=== PATIENT | male | born 1940 | race Caucasian/White ===

== ENCOUNTER 2020-04-20 10:09 | Observation (INO) | payer MEDICARE, BC, OTHER ==
[2020-04-20] MEDS ORDERED: Metoclopramide HCl 10 MG/2 ML VIAL ONE (11:19)
[2020-04-20 11:27] LABS: #Lymphocytes 1.3 thou/uL (1.20-3.40); #Monocytes 0.3 thou/uL (0.11-0.59); #Neutrophils 10.1 thou/uL (1.40-6.50); %Basophils 0.1 % (0.0-1.0); %Eosinophils 0.3 % (0.0-10.0); %Lymphocytes 11.1 % (21.0-51.0); %Monocytes 2.1 % (0.0-10.0); %Neutrophils 86.4 % (42.0-75.0); Hemoglobin 15.4 g/dL (14.0-18.0); Mean Corpuscular HGB CONC 32.5 g/dL (32.0-36.0); Mean Corpuscular Hemoglobin 29.9 pg (27.0-31.0); Mean Corpuscular Volume 91.8 fL (78.0-98.0); Mean Platelet Volume 7.5 fL (7.4-10.4); Platelet Count 307 thou/uL (130-400); RBC Distribution Width 11.9 % (11.5-14.5); Red Blood Cell (RBC) Count 5.17 mill/uL (4.70-6.10); White Blood Cell (WBC) Count 11.7 thou/uL (4.8-10.8)
[2020-04-20 11:30] LABS: PTT 29.2 sec (22.9-36.1); Prothrombin Time 13.2 sec (12.0-14.7)
[2020-04-20 11:52] LABS: ALT (SGPT) 19 U/L (8-55); AST (SGOT) 16 U/L (5-34); Albumin 4.1 g/dL (3.4-4.8); Alkaline Phosphatase 61 U/L (40-110); Anion Gap 16 mmol/L (10-20); BUN (Urea Nitrogen) 17 mg/dL (8.4-25.7); Bilirubin, Total 0.6 mg/dL (0.2-1.2); Calc. Creatinine Clearance 0 mL/min (70-130); Calcium 9.4 mg/dL (7.8-10.44); Carbon Dioxide 25 mmol/L (23-31); Chloride 101 mmol/L (98-107); Estimated GFR-MDRD 72; Globulin 3.4 g/dL (2.4-3.5); Glucose 159 mg/dL (83-110); Potassium 3.8 mmol/L (3.5-5.1); Protein, Total 7.5 g/dL (5.8-8.1); Sodium 138 mmol/L (136-145)
[2020-04-20 12:10] LABS: CKMB 2.2 ng/mL (0-6.6)
[2020-04-20] MEDS ORDERED: Famotidine/PF 20 mg/2ml Vial ONE (12:26)
[2020-04-20] MEDS ORDERED: methylPREDNISolone Sod Succ/PF 125 MG/2 ML VIAL ONE (12:26)
[2020-04-20] MEDS ORDERED: diphenhydrAMINE 50 MG/ML VIAL ONE (12:26)
[2020-04-20] MEDS ORDERED: Labetalol HCl 100 MG/20 ML VIAL ONE (12:39)
--- NOTE | 2020-04-20 13:08 | CT ---
CT Brain WO Con: 04/20/2020 10:57 AM CLINICAL HISTORY: Headache. IMAGING TECHNIQUE: Multiple CT images were obtained of the brain without IV contrast. COMPARISON: MR the brain dated 08/19/2016 FINDINGS: BRAIN: Evidence of acute infarct: None. Evidence of chronic ischemic change:There is mild chronic small vessel white matter ischemic change, likely stable to the prior MR examination. Evidence of intracranial hemorrhage: None. Evidence of midline shift: Third ventricle and septum pellucidum are midline. Ventricles: Normal. No hydrocephalus. SKULL: Intact. VISUALIZED PARANASAL SINUSES: Clear. MASTOID AIR CELLS: Clear. EXTRACRANIAL SOFT TISSUES: Normal. IMPRESSION: No acute intracranial abnormality.
--- NOTE | 2020-04-20 13:25 | CT ---
EXAM: CT ANGIOGRAM OF THE HEAD AND NECK INDICATION: Headache. Hypertension. Evaluate for dissection versus ruptured aneurysm. COMPARISON: None. TECHNIQUE: CT angiogram of the head and neck are performed in the axial plane. Three-dimensional reformatted dany ges are submitted for interpretation. FINDINGS: CTA OF THE HEAD WITH AND WITHOUT CONTRAST: POSTCONTRAST CT OF BRAIN: Pathologic enhancement: No pathologic enhancement the brain. Postcontrast soft tissue neck CT: Aerodigestive tract:Aerodigestive tract is patent. No mucosal abnormality. Sinuses: Adequate aeration. Orbits: Bilateral ocular lenses are appropriately located. Both globes are intact. Retrobulbar fat is preserved. Symmetric attenuation the optic nerves and ocular rectus muscles. Salivary glands:Symmetric attenuation of the parotid and submandibular glands . Thyroid gland: Diminutive. Lymph nodes: No evidence of lymphadenopathy by size criteria. Paraspinal muscles: Symmetric attenuation of the sternocleidomastoid muscles. Appropriate attenuation of the paraspinal muscles. Cervical spine:Vertebral body height is maintained. No fracture. There is loss of disc space height w ith mild osteophyte formation. There are varying degrees of central canal stenosis and foraminal narrowing on the basis of degenerative change. Limited evaluation by technique. Upper mediastinum and lung apices: No acute abnormality. CTA OF THE NECK WITH CONTRAST: Aorta: Appropriate enhancement and luminal diameter the visualized aortic arch. Common origin of the innominate artery and left carotid artery. Right carotid artery: Appropriate enhancement and luminal diameter of the innominate artery, common c arotid artery, carotid bifurcation and internal carotid artery. Minimal atherosclerosis. No significant stenosis based upon NASCET criteria. Left carotid: Appropriate enhancement and luminal diameter of the common carotid artery, carotid bifu rcation and internal carotid artery. This calcified plaque in the left carotid bifurcation and proximal internal carotid artery. Short segment mild narrowing of the proximal internal carotid arter y. No evidence of high-grade stenosis based upon NASCET criteria. Subclavian arteries:Symmetric and patent . Vertebral arteries:Patent throughout their course in the neck. Codominant vertebral arteries. CTA OF THE BRAIN: Intracranial internal carotid arteries:Appropriate enhancement and luminal diameter. Atherosclerosis in both cavernous carotid segments. Anterior circulation: Appropriate enhancement and luminal diameter of the A1 segments, A2 segments, M 1 segments and proximal MCA branches. No significant occlusion in the anterior circulation. No evidence of aneurysm. Intracranial vertebral arteries: Symmetric visualized left and right PICA artery origins are normal i n appearance. There is atherosclerosis with at least moderate narrowing involving the intracranial bilateral vertebral arteries. Posterior circulation: Both vertebral arteries supply a normal caliber basilar artery. Patent bilater al P1 segments. The majority the posterior cerebral circulation appears to be via prominent posterior communicating arteries. IMPRESSION: 1. No hemodynamically significant stenosis, occlusion or aneurysmal formation with regard to the cerv ical carotid arteries. 2. No significant stenosis or aneurysm at the level of the [place]. 3. Findings conveyed to Dr. Moraes 04/20/2020 at 1:24 PM. Code CR. Transcribed Date/Time: 04/20/2020 1:32 PM
[2020-04-20] MEDS ORDERED: Aspirin Chewable 81 MG TAB ONE (13:49)
[2020-04-20] MEDS ORDERED: Iopamidol-370 76% 500 ML 1 ML ONE (15:27)
--- NOTE | 2020-04-20 15:30 | MRI ---
Exam: Brain MRI without contrast HISTORY: Headache, intermittent x2 weeks. Hypertension. Evaluate for stroke. Vertigo. COMPARISON: None FINDINGS: Calvarial marrow signal intensity: Appropriate T1 signal Gradient echo sequence: No hemorrhage Brain parenchyma: No mass, mass effect or midline shift. Brain volume, age-appropriate. Cortical henry-white matter differentiation: Preserved Restricted diffusion: Central arterial flow voids are maintained. Absent restricted diffusion White matter signal intensities: T2, FLAIR white matter hyperintensities due to chronic small vessel ischemic changes Sinuses: Adequate aeration of the paranasal sinuses and mastoid air cells. IMPRESSION: Absent restricted diffusion. No acute infarction.
[2020-04-20] MEDS ORDERED: Labetalol HCl 100 MG/20 ML VIAL SLOW IVP PRN (16:17)
[2020-04-20] MEDS ORDERED: HumaLOG 300 UNITS/3 ML VIAL SC PRN (16:19)
[2020-04-20] MEDS ORDERED: Dextrose 50% Abboject 50 ML SYRINGE SLOW IVP PRN (16:19)
[2020-04-20] MEDS ORDERED: Acetaminophen 325 MG TAB PO PRN (16:19)
[2020-04-20] MEDS ORDERED: Dextrose 5% in Water 1,000 ML IV PRN (16:19)
--- NOTE | 2020-04-20 16:29 | PDOC.HHP ---
Hospitalist HPI - History of Present Illness VELASQUEZ, dizziness History of Present Illness: PCP: Dr. Freire in [facility] The patient is an extremely pleasant 80-year-old male with past medical history significant for hypertension, diabetes type 2, intermittent vertigo, and hyperlipidemia. He presents to the ER today for evaluation of intermittent headaches over the past 2 weeks, those headaches have now returned constant for the past 3 days. He describes it as the worst headache of his life. He states that it is above his right eye and towards the back of his neck. The patient states that he vomited 1 time yesterday and has been nauseated today. The patient does have a history of vertigo, however, he states that lately when he has been getting up and moving around it has been more consistent. Of note, the patient in January was dizzy and went to see his PCP. It was discovered that he had low blood pressure so his physician took him off of his Norvasc and HCTZ. At the time of exam the patient's blood pressure was 148/68 and he stated that his headache was gone. He feels that his headache may be directly related to the blood pressure as his pressure was 183/96 when he first arrived. ED Course: VITAL SIGNS ThuApr 20, 2020 10:12 RAFA Norton Taylor BP: 183/96, Pulse: 78, Resp: 16, Temp: 97.8 (Oral), Pain: 5, O2 sat: 97 on (Room Air), Time: 04/20/2020 10:12. VITAL SIGNS ThuApr 20, 2020 11:11 RAFA Garcia Angela BP: 206/92, Pulse: 82, Resp: 19, O2 sat: 97, Time: 04/20/2020 11:11. VITAL SIGNS ThuApr 20, 2020 12:34 RAFA Garcia Angela BP: 196/104, Pulse: 75, Resp: 19, Pain: 5, O2 sat: 97, Time: 04/20/2020 12:34. VITAL SIGNS ThuApr 20, 2020 12:53 RAFA Garcia Angela BP: 165/86, Pulse: 71, Resp: 17, Pain: 3.5, O2 sat: 95, Time: 04/20/2020 12:53. VITAL SIGNS ThuApr 20, 2020 13:56 RAFA Lee, Darrel BP: 173/85, Pulse: 79, Resp: 18, Temp: 98.6 (Oral), Pain: 2, O2 sat: 98 on (Room Air), Time: 04/20/2020 13:56. VITAL SIGNS Fri Apr 20, 2020 15:36 RAFA Lee, Jt BP: 148/68, Pulse: 88, Resp: 20, Pain: 0, O2 sat: 96 on (Room Air), Time: 04/20/2020 15:36. Today in the ER he had lab work, brain CT without contrast, neck and brain CT with contrast, and brain MRI. He was administered aspirin 324 mg, labetalol 20 mg IV, methylprednisolone 125 mg IV, famotidine 20 mg IV, diphenhydramine 25 mg IV, and metoclopramide 10 mg IV. The steroids, Pepcid, Benadryl, and metoclopramide were given prior to his CT with contrast as he is allergic to iodine. Hospitalist ROS - Review of Systems Constitutional: reports: other (headache) Gastrointestinal: reports: nausea, vomiting (x1) All other systems reviewed; all pertinent +/- noted in HPI/Subj Hospitalist History - Past Medical History Source: patient Cardiac: reports: HTN, Hyperlipidemia SUPPLY CHAIN GENERALIST: reports: Vertigo Heme/Onc: reports: Cancer (prostate- only received radiation, cleared) Endocrine: reports: Diabetes, Hypothyroidism - Exam General Appearance: NAD, awake alert General - other findings: states he is pain free ENT: normocephalic atraumatic Neck: supple Heart: RRR, no murmur, no gallops, no rubs, normal peripheral pulses Respiratory: CTAB, no wheezes, no rales, no ronchi, normal chest expansion Gastrointestinal: soft, non-tender, non-distended, normal bowel sounds Extremities: no edema Neurological: cranial nerve grossly intact, normal sensation to touch, no weakness, no focal deficits Musculoskeletal: normal tone, normal strength Psychiatric: normal affect, normal behavior, A&O x 3 Hospitalist Results - Labs Result Diagrams: 04/20/20 11:14 04/20/20 11:14 Lab results: WBC 11.7 thou/uL (4.8-10.8) H 04/20/20 11:14 Hgb 15.4 g/dL (14.0-18.0) 04/20/20 11:14 Hct 47.5 % (42.0-52.0) 04/20/20 11:14 MCV 91.8 fL (78.0-98.0) 04/20/20 11:14 Plt Count 307 thou/uL (130-400) 04/20/20 11:14 Neutrophils % 86.4 % (42.0-75.0) H 04/20/20 11:14 Sodium 138 mmol/L (136-145) 04/20/20 11:14 Potassium 3.8 mmol/L (3.5-5.1) 04/20/20 11:14 Chloride 101 mmol/L (98-107) 04/20/20 11:14 Carbon Dioxide 25 mmol/L (23-31) 04/20/20 11:14 BUN 17 mg/dL (8.4-25.7) 04/20/20 11:14 Creatinine 1.00 mg/dL (0.7-1.3) 04/20/20 11:14 Glucose 159 mg/dL (83-110) H 04/20/20 11:14 Calcium 9.4 mg/dL (7.8-10.44) 04/20/20 11:14 Total Bilirubin 0.6 mg/dL (0.2-1.2) 04/20/20 11:14 AST 16 U/L (5-34) 04/20/20 11:14 ALT 19 U/L (8-55) 04/20/20 11:14 Alkaline Phosphatase 61 U/L (40-110) 04/20/20 11:14 CK-MB (CK-2) 2.2 ng/mL (0-6.6) 04/20/20 11:14 Troponin I 0.020 ng/mL (< 0.028) 04/20/20 14:38 Serum Total Protein 7.5 g/dL (5.8-8.1) 04/20/20 11:14 Albumin 4.1 g/dL (3.4-4.8) 04/20/20 11:14 - EKG Interpretation EKG: SR 80 bpm - Radiology Interpretation CT scan - head Status: report reviewed by me Additional Comment: Exam: CT brain WO contrast IMPRESSION: No acute intracranial abnormality. Exam: CTA Neck and Head IMPRESSION: 1. No hemodynamically significant stenosis, occlusion or aneurysmal formation with regard to the cervical carotid arteries. 2. No significant stenosis or aneurysm at the level of the [place]. MRI - head Status: report reviewed by me Additional Comment: HISTORY: Headache, intermittent x2 weeks. Hypertension. Evaluate for stroke. Vertigo. COMPARISON: None FINDINGS: Calvarial marrow signal intensity: Appropriate T1 signal Gradient echo sequence: No hemorrhage Brain parenchyma: No mass, mass effect or midline shift. Brain volume, age- appropriate. Cortical henry-white matter differentiation: Preserved Restricted diffusion: Central arterial flow voids are maintained. Absent restr icted diffusion White matter signal intensities: T2, FLAIR white matter hyperintensities due to chronic small vessel ischemic changes Sinuses: Adequate aeration of the paranasal sinuses and mastoid air cells. IMPRESSION: Absent restricted diffusion. No acute infarction. Hospitalist H&P A/P - Plan Plan: Severe headache Analgesics available Headache has resolved once blood pressure was lowered Dizziness rule out TIA Monitor on telemetry for observation Neuro checks every 4 hours, NIH every shift Neuro consult Echo ordered FLP in a.m. Hypertension Continue home medications P.r.n. antihypertensives available Monitor vital signs every 4 hour Elevated troponin Denies chest pain Monitor on telemetry overnight Continue to trend troponin Diabetes mellitus type 2 Monitor Accu-Cheks AC at bedtime Sliding scale insulin available Consistent carb diet Hypothyroid Continue home medication Hyperlipidemia Continue home medication FLP in a.m. CODE STATUS: Full Surrogate decision maker is his , [place] Patient was discussed with Dr. Birch
[2020-04-20] MEDS ORDERED: Cyanocobalamin 1000 MCG/ML VIAL IM SCH (17:00)
[2020-04-20 17:25] VITALS: BMI 27.3
[2020-04-20 18:24] LABS: Troponin I 0.013 ng/mL (< 0.028)
[2020-04-20] MEDS: HumaLOG 300 UNITS/3 ML VIAL SC PRN (21:14)
[2020-04-20] MEDS ORDERED: Famotidine 20 MG TAB PO SCH (21:45)
[2020-04-21] MEDS: HumaLOG 300 UNITS/3 ML VIAL SC PRN (01:52)
[2020-04-21 05:13] LABS: #Lymphocytes 1.5 thou/uL (1.20-3.40); #Monocytes 0.7 thou/uL (0.11-0.59); #Neutrophils 8.8 thou/uL (1.40-6.50); %Basophils 0.4 % (0.0-1.0); %Eosinophils 0.1 % (0.0-10.0); %Lymphocytes 13.5 % (21.0-51.0); %Monocytes 5.9 % (0.0-10.0); Hemoglobin 15.3 g/dL (14.0-18.0); Mean Corpuscular HGB CONC 31.5 g/dL (32.0-36.0); Mean Corpuscular Hemoglobin 29.4 pg (27.0-31.0); Mean Corpuscular Volume 93.1 fL (78.0-98.0); Mean Platelet Volume 7.6 fL (7.4-10.4); Platelet Count 305 thou/uL (130-400); White Blood Cell (WBC) Count 10.9 thou/uL (4.8-10.8)
[2020-04-21 05:15] LABS: Hemoglobin A1c 6.3 % (4.0-6.0)
[2020-04-21 05:41] LABS: Anion Gap 14 mmol/L (10-20); BUN (Urea Nitrogen) 17 mg/dL (8.4-25.7); Calc. Creatinine Clearance 81 mL/min (70-130); Calcium 9.4 mg/dL (7.8-10.44); Carbon Dioxide 25 mmol/L (23-31); Chloride 105 mmol/L (98-107); Cholesterol 157 mg/dl (< 200 Desired); Estimated GFR-MDRD 72; Glucose 187 mg/dL (83-110); HDL Cholesterol 39 mg/dL (>60 Neg Risk); LDL Cholesterol, Calculated 106 mg/dL; Sodium 140 mmol/L (136-145); Triglycerides 58 mg/dL (Less than 150)
[2020-04-21] MEDS ORDERED: Levothyroxine Sodium 88 MCG TAB PO SCH (06:00)
[2020-04-21 07:18] VITALS: TEMP 97.8
[2020-04-21] MEDS ORDERED: metFORMIN 500 MG TAB PO SCH (08:00)
[2020-04-21] MEDS ORDERED: Cyanocobalamin (Vitamin B-12) 1,000 MCG TAB PO SCH (09:00)
[2020-04-21] MEDS ORDERED: Famotidine 20 MG TAB PO SCH (09:00)
[2020-04-21] MEDS ORDERED: Amlodipine 5 MG TAB PO SCH (09:00)
[2020-04-21] MEDS ORDERED: Aspirin 325 mg Enteric Coated Tablet PO SCH (09:00)
[2020-04-21] MEDS ORDERED: Aspirin Chewable 81 MG TAB PO SCH (09:00)
[2020-04-21] MEDS ORDERED: FLU VACC QS2020-21(65YR UP)/PF 240 MCG/0.7 ML SYRINGE IM ONE (09:00)
[2020-04-21 11:26] VITALS: BP 175/92
[2020-04-21 12:02] LABS: SARS-CoV-2 MS2 Positive; SARS-CoV-2 N Gene Negative; SARS-CoV-2 S Gene Negative; SARS-CoV-2 by NAA Not Detected (NotDetected); SARS-CoV-2 orf1ab Negative
--- NOTE | 2020-04-21 16:55 | DIS ---
DATE OF ADMISSION: 04/20/2020 DATE OF DISCHARGE: 04/21/2020 DISCHARGE DISPOSITION: Home. PRIMARY DISCHARGE DIAGNOSIS: Headache with dizziness, resolved. SECONDARY DISCHARGE DIAGNOSES: Hypertension, hypothyroidism, diabetes mellitus type 2, history of vertigo. PROCEDURES DONE DURING HOSPITALIZATION: CT brain showed no acute intracranial abnormality. CT angio of brain showed no hemodynamically significant stenosis or occlusion or aneurysm formation. MRI brain showed absent restricted diffusion, no acute infarct. Echo with 2D Doppler showed EF of 60% to 65% with diastolic dysfunction. H and H 15 and 48, platelet count is 305. BUN 17, creatinine 1.0. HbA1c 6.3. Total cholesterol 157, triglycerides 58, LDL 106, HDL 39. Vitamin B12 188 mcg/mL, folic acid 8.2. COVID-19 PCR was not detected on 04/20/2020. DISCHARGE MEDICATIONS: 1. Aspirin 81 mg p.o. daily. 2. Pepcid 10 mg daily. 3. Levothyroxine 88 mcg p.o. daily. 4. Metformin 1000 mg twice daily. 5. Pravastatin 40 mg p.o. at bedtime. 6. Toprol-XL 25 mg daily. 7. Olmesartan 40 mg p.o. q.p.m. ALLERGIES: IODINE AND EPINEPHRINE. DISCHARGE PLAN: Patient needs to follow up with his primary care physician, Dr. Freire in [facility] in 1 week. He is also advised to check blood pressure and pulse twice daily and record for 10 days, to follow up with Dr. Freire. BRIEF COURSE DURING HOSPITALIZATION: The patient initially came to ER with complaints of headache and dizziness. He has had intermittent headaches for almost 2 weeks. The patient was taken off amlodipine due to hypotension by his primary care physician. On arrival, the patient had elevated blood pressures of 183/96. He was placed back on amlodipine. The patient's headache and dizziness have completely resolved. A complete neurologic workup was done, which has been negative for any acute CVA. Echo done showed normal ejection fraction. He is ambulating and eating well prior to discharge. Please note I have seen and examined the patient on the day of discharge. He gets weakness in his lower extremities when he takes amlodipine per patient. Job ID: [id number] MTDD
[2020-04-21] MEDS ORDERED: Atorvastatin Calcium 10 MG TAB PO SCH (21:00)
--- NOTE | 2020-04-23 10:48 | CT ---
EXAM: CT ANGIOGRAM OF THE HEAD AND NECK INDICATION: Headache. Hypertension. Evaluate for dissection versus ruptured aneurysm. COMPARISON: None. TECHNIQUE: CT angiogram of the head and neck are performed in the axial plane. Three-dimensional reformatted dany ges are submitted for interpretation. FINDINGS: CTA OF THE HEAD WITH AND WITHOUT CONTRAST: POSTCONTRAST CT OF BRAIN: Pathologic enhancement: No pathologic enhancement the brain. Postcontrast soft tissue neck CT: Aerodigestive tract:Aerodigestive tract is patent. No mucosal abnormality. Sinuses: Adequate aeration. Orbits: Bilateral ocular lenses are appropriately located. Both globes are intact. Retrobulbar fat is preserved. Symmetric attenuation the optic nerves and ocular rectus muscles. Salivary glands:Symmetric attenuation of the parotid and submandibular glands . Thyroid gland: Diminutive. Lymph nodes: No evidence of lymphadenopathy by size criteria. Paraspinal muscles: Symmetric attenuation of the sternocleidomastoid muscles. Appropriate attenuation of the paraspinal muscles. Cervical spine:Vertebral body height is maintained. No fracture. There is loss of disc space height w ith mild osteophyte formation. There are varying degrees of central canal stenosis and foraminal narrowing on the basis of degenerative change. Limited evaluation by technique. Upper mediastinum and lung apices: No acute abnormality. CTA OF THE NECK WITH CONTRAST: Aorta: Appropriate enhancement and luminal diameter the visualized aortic arch. Common origin of the innominate artery and left carotid artery. Right carotid artery: Appropriate enhancement and luminal diameter of the innominate artery, common c arotid artery, carotid bifurcation and internal carotid artery. Minimal atherosclerosis. No significant stenosis based upon NASCET criteria. Left carotid: Appropriate enhancement and luminal diameter of the common carotid artery, carotid bifu rcation and internal carotid artery. This calcified plaque in the left carotid bifurcation and proximal internal carotid artery. Short segment mild narrowing of the proximal internal carotid arter y. No evidence of high-grade stenosis based upon NASCET criteria. Subclavian arteries:Symmetric and patent . Vertebral arteries:Patent throughout their course in the neck. Codominant vertebral arteries. CTA OF THE BRAIN: Intracranial internal carotid arteries:Appropriate enhancement and luminal diameter. Atherosclerosis in both cavernous carotid segments. Anterior circulation: Appropriate enhancement and luminal diameter of the A1 segments, A2 segments, M 1 segments and proximal MCA branches. No significant occlusion in the anterior circulation. No evidence of aneurysm. Intracranial vertebral arteries: Symmetric visualized left and right PICA artery origins are normal i n appearance. There is atherosclerosis with at least moderate narrowing involving the intracranial bilateral vertebral arteries. Posterior circulation: Both vertebral arteries supply a normal caliber basilar artery. Patent bilater al P1 segments. The majority the posterior cerebral circulation appears to be via prominent posterior communicating arteries. IMPRESSION: 1. No hemodynamically significant stenosis, occlusion or aneurysmal formation with regard to the cerv ical carotid arteries. 2. No significant stenosis or aneurysm at the level of the [place]. 3. Findings conveyed to Dr. Moraes 04/20/2020 at 1:24 PM. Code CR. Transcribed Date/Time: 04/23/2020 10:48 AM
== END 2020-04-21 12:30 | disposition home or self-care (01) ==
LOC: ERS 10:09 → 2SE 14:29
PROVIDERS: ADMIT Internal Medicine; ATTEND Internal Medicine
DX: R51.9 Headache, unspecified (principal); R42 Dizziness and giddiness; I10 Essential (primary) hypertension; E03.9 Hypothyroidism, unspecified; E11.9 Type 2 diabetes mellitus without complications; E78.5 Hyperlipidemia, unspecified; R79.89 Other specified abnormal findings of blood chemistry; Z88.8 Allergy status to other drugs, medicaments and biological substances; Z20.828 Contact with and (suspected) exposure to other viral communicable diseases
CPT/HCPCS: 70450; 70496; 70498; 70551; 80048; 80053; 80061; 82553; 82607; 82746; 82962 ×2; 83036; 84443; 84484 ×2; 85025 ×2; 85610; 85730; 93005; 93306; 96372; 96374; 96375; 99285; G0378 ×3; U0003; 36415; 36416; 87635; J1200; J2765; J2930; J3420; Q9967; S0028

== ENCOUNTER 2021-07-01 10:15 | Inpatient (IN) | payer MEDICARE, BC ==
[2021-07-01 10:59] LABS: #Eosinphils 0.2 thou/uL (0.0-0.7); #Lymphocytes 2.2 thou/uL (1.20-3.40); #Monocytes 0.5 thou/uL (0.11-0.59); #Neutrophils 5.9 thou/uL (1.40-6.50); %Basophils 0.1 % (0.0-1.0); %Eosinophils 2.7 % (0.0-10.0); %Lymphocytes 25.1 % (21.0-51.0); %Monocytes 5.7 % (0.0-10.0); %Neutrophils 66.3 % (42.0-75.0); Hemoglobin 15.7 g/dL (14.0-18.0); Mean Corpuscular HGB CONC 32.8 g/dL (32.0-36.0); Mean Corpuscular Hemoglobin 30.6 pg (27.0-31.0); Mean Corpuscular Volume 93.2 fL (78.0-98.0); Mean Platelet Volume 7.3 fL (7.4-10.4); Platelet Count 296 thou/uL (130-400); RBC Distribution Width 12.2 % (11.5-14.5); Red Blood Cell (RBC) Count 5.13 mill/uL (4.70-6.10); White Blood Cell (WBC) Count 8.9 thou/uL (4.8-10.8)
[2021-07-01 11:03] LABS: Prothrombin Time 13.4 sec (12.0-14.7)
[2021-07-01 11:04] LABS: PTT 29.7 sec (22.9-36.1)
[2021-07-01] MEDS ORDERED: Labetalol HCl 100 MG/20 ML VIAL ONE (11:07)
[2021-07-01] MEDS ORDERED: Aspirin 325 MG TAB ONE (11:07)
[2021-07-01 11:10] LABS: ALT (SGPT) 21 U/L (8-55); AST (SGOT) 15 U/L (5-34); Albumin 4.2 g/dL (3.4-4.8); Alkaline Phosphatase 63 U/L (40-110); Anion Gap 13 mmol/L (10-20); BUN (Urea Nitrogen) 20 mg/dL (8.4-25.7); Bilirubin, Total 0.6 mg/dL (0.2-1.2); Calc. Creatinine Clearance 0 mL/min (70-130); Calcium 9.9 mg/dL (7.8-10.44); Carbon Dioxide 28 mmol/L (23-31); Chloride 103 mmol/L (98-107); Globulin 3.5 g/dL (2.4-3.5); Glucose 154 mg/dL (83-110); Magnesium 1.8 mg/dL (1.6-2.6); Protein, Total 7.7 g/dL (5.8-8.1); Sodium 140 mmol/L (136-145)
[2021-07-01] MEDS ORDERED: Aspirin Chewable 81 MG TAB ONE (11:13)
[2021-07-01] MEDS ORDERED: HYDROcodone/Acetaminophen 5/325 mg Tablet PO PRN (13:54)
[2021-07-01 15:31] LABS: Hemoglobin A1c 6.7 % (4.0-6.0)
[2021-07-01 16:22] LABS: SARS-CoV-2 NAA Rapid Test Not Detected (NotDetected)
[2021-07-01] MEDS: Famotidine/PF 20 mg/2ml Vial SLOW IVP SCH (21:10)
[2021-07-01] MEDS: Labetalol HCl 100 MG/20 ML VIAL SLOW IVP PRN ×2 (21:10→23:49)
[2021-07-02] MEDS: Labetalol HCl 100 MG/20 ML VIAL SLOW IVP PRN ×3 (05:30→17:11)
[2021-07-02 05:35] LABS: #Basophils 0.1 thou/uL (0.0-0.2); #Eosinphils 0.2 thou/uL (0.0-0.7); #Lymphocytes 1.8 thou/uL (1.20-3.40); #Monocytes 0.6 thou/uL (0.11-0.59); #Neutrophils 6.2 thou/uL (1.40-6.50); %Basophils 0.6 % (0.0-1.0); %Eosinophils 2.5 % (0.0-10.0); %Lymphocytes 20.5 % (21.0-51.0); %Monocytes 6.7 % (0.0-10.0); %Neutrophils 69.6 % (42.0-75.0); Hemoglobin 14.1 g/dL (14.0-18.0); Mean Corpuscular HGB CONC 33.1 g/dL (32.0-36.0); Mean Corpuscular Volume 93.7 fL (78.0-98.0); Mean Platelet Volume 7.6 fL (7.4-10.4); Platelet Count 260 thou/uL (130-400); RBC Distribution Width 12.2 % (11.5-14.5); Red Blood Cell (RBC) Count 4.56 mill/uL (4.70-6.10); White Blood Cell (WBC) Count 8.8 thou/uL (4.8-10.8)
[2021-07-02 05:53] LABS: Anion Gap 10 mmol/L (10-20); BUN (Urea Nitrogen) 18 mg/dL (8.4-25.7); Calc. Creatinine Clearance 76 mL/min (70-130); Calcium 9.1 mg/dL (7.8-10.44); Carbon Dioxide 28 mmol/L (23-31); Chloride 106 mmol/L (98-107); Glucose 147 mg/dL (83-110); Potassium 3.8 mmol/L (3.5-5.1); Sodium 140 mmol/L (136-145)
[2021-07-02] MEDS ORDERED: FLU VACC QS2021-22(65YR UP)/PF 240 MCG/0.7 ML SYRINGE IM ONE (09:00)
[2021-07-02] MEDS: Metoprolol Tartrate 25 MG TAB PO SCH (09:13)
[2021-07-02] MEDS: Losartan 25 MG TAB PO SCH (09:13)
[2021-07-02] MEDS: Famotidine/PF 20 mg/2ml Vial SLOW IVP SCH ×2 (09:14→20:46)
[2021-07-02] MEDS ORDERED: Levothyroxine Sodium 88 MCG TAB PO SCH (10:15)
[2021-07-02] MEDS ORDERED: Aspirin 81 mg Enteric Coated Tablet PO SCH (10:15)
[2021-07-02] MEDS ORDERED: Clopidogrel Bisulfate 75 MG TAB PO SCH (12:30)
[2021-07-02] MEDS: hydrALAZINE 25 MG TAB PO SCH (20:45)
[2021-07-02] MEDS: Trospium 20 MG TAB PO SCH (20:45)
[2021-07-02] MEDS: Atorvastatin Calcium 40 MG TAB PO SCH (20:46)
[2021-07-03] MEDS: hydrALAZINE 20 MG/ML VIAL SLOW IVP PRN (06:45)
[2021-07-03] MEDS: Levothyroxine Sodium 88 MCG TAB PO SCH (06:47)
[2021-07-03] MEDS: Aspirin 81 mg Enteric Coated Tablet PO SCH (09:07)
[2021-07-03] MEDS: Losartan 25 MG TAB PO SCH (09:07)
[2021-07-03] MEDS: Metoprolol Tartrate 25 MG TAB PO SCH ×2 (09:07→20:19)
[2021-07-03] MEDS: Clopidogrel Bisulfate 75 MG TAB PO SCH (09:08)
[2021-07-03] MEDS: hydrALAZINE 25 MG TAB PO SCH ×3 (09:08→20:19)
[2021-07-03] MEDS: Famotidine/PF 20 mg/2ml Vial SLOW IVP SCH ×2 (09:09→20:18)
[2021-07-03] MEDS: Trospium 20 MG TAB PO SCH ×2 (09:09→20:19)
[2021-07-03] MEDS: Labetalol HCl 100 MG/20 ML VIAL SLOW IVP PRN ×2 (09:09→23:49)
[2021-07-03] MEDS ORDERED: hydrALAZINE 20 MG/ML VIAL SLOW IVP SCH (09:45)
[2021-07-03] MEDS ORDERED: HumaLOG 300 UNITS/3 ML VIAL SC PRN (09:54)
[2021-07-03] MEDS ORDERED: Dextrose 5% in Water 1,000 ML IV PRN (09:54)
[2021-07-03] MEDS ORDERED: Dextrose 50% Abboject 50 ML SYRINGE SLOW IVP PRN (09:54)
[2021-07-03] MEDS: Acetaminophen 325 MG TAB PO PRN ×2 (15:38→20:18)
[2021-07-03] MEDS: Atorvastatin Calcium 40 MG TAB PO SCH (20:19)
[2021-07-03] MEDS: Ondansetron PF 4 MG/2 ML Vial IVP PRN (23:51)
[2021-07-04] MEDS: Levothyroxine Sodium 88 MCG TAB PO SCH (05:41)
[2021-07-04] MEDS: Enoxaparin Sodium 40 MG/0.4 ML SYRINGE SC SCH (09:33)
[2021-07-04] MEDS: Aspirin 81 mg Enteric Coated Tablet PO SCH (09:33)
[2021-07-04] MEDS: Clopidogrel Bisulfate 75 MG TAB PO SCH (09:33)
[2021-07-04] MEDS: hydrALAZINE 25 MG TAB PO SCH ×3 (09:38→20:50)
[2021-07-04] MEDS: Trospium 20 MG TAB PO SCH ×2 (09:38→21:48)
[2021-07-04] MEDS: Metoprolol Tartrate 25 MG TAB PO SCH (09:38)
[2021-07-04] MEDS: Losartan 25 MG TAB PO SCH (09:39)
[2021-07-04] MEDS: Famotidine/PF 20 mg/2ml Vial SLOW IVP SCH ×2 (09:40→20:52)
[2021-07-04] MEDS: Labetalol HCl 100 MG/20 ML VIAL SLOW IVP PRN (14:44)
[2021-07-04] MEDS ORDERED: NIFEdipine XL 60 MG TAB PO SCH (15:00)
[2021-07-04] MEDS: hydrALAZINE 20 MG/ML VIAL SLOW IVP PRN (16:04)
[2021-07-04] MEDS: niCARdipine 25 MG in Sodium Chloride 0.9% 250 ML 250 ML IVPB SCH (17:15)
[2021-07-04] MEDS: Ondansetron PF 4 MG/2 ML Vial IVP PRN (17:34)
[2021-07-04] MEDS: Acetaminophen 325 MG TAB PO PRN (19:15)
[2021-07-04] MEDS: Atorvastatin Calcium 40 MG TAB PO SCH (20:52)
[2021-07-04] MEDS: Metoprolol Tartrate 50 MG TAB PO SCH (20:52)
[2021-07-05] MEDS: niCARdipine 25 MG in Sodium Chloride 0.9% 250 ML 250 ML IVPB SCH (00:30)
[2021-07-05] MEDS: Levothyroxine Sodium 88 MCG TAB PO SCH (06:18)
[2021-07-05] MEDS: HumaLOG 300 UNITS/3 ML VIAL SC PRN ×3 (06:19→16:53)
[2021-07-05] MEDS: Aspirin 81 mg Enteric Coated Tablet PO SCH (08:50)
[2021-07-05] MEDS: hydrALAZINE 25 MG TAB PO SCH ×3 (08:51→21:36)
[2021-07-05] MEDS: Metoprolol Tartrate 50 MG TAB PO SCH ×2 (08:53→21:37)
[2021-07-05] MEDS: Losartan 25 MG TAB PO SCH (08:53)
[2021-07-05] MEDS: Trospium 20 MG TAB PO SCH ×2 (08:53→21:36)
[2021-07-05] MEDS: Clopidogrel Bisulfate 75 MG TAB PO SCH (08:54)
[2021-07-05] MEDS: Enoxaparin Sodium 40 MG/0.4 ML SYRINGE SC SCH (08:55)
[2021-07-05] MEDS: Famotidine/PF 20 mg/2ml Vial SLOW IVP SCH ×2 (08:57→21:37)
[2021-07-05] MEDS ORDERED: NIFEdipine XL 60 MG TAB PO SCH (09:00)
[2021-07-05] MEDS: Ondansetron PF 4 MG/2 ML Vial IVP PRN (11:40)
[2021-07-05 13:20] LABS: Anion Gap 13 mmol/L (10-20); BUN (Urea Nitrogen) 22 mg/dL (8.4-25.7); Calc. Creatinine Clearance 83 mL/min (70-130); Calcium 9.3 mg/dL (7.8-10.44); Carbon Dioxide 25 mmol/L (23-31); Chloride 96 mmol/L (98-107); Glucose 188 mg/dL (83-110); Magnesium 1.9 mg/dL (1.6-2.6); Phosphorus 2.6 mg/dL (2.3-4.7); Potassium 3.4 mmol/L (3.5-5.1)
[2021-07-05 13:22] LABS: Sodium 131 mmol/L (136-145)
[2021-07-05] MEDS: Acetaminophen 325 MG TAB PO PRN (15:27)
[2021-07-05] MEDS: hydrALAZINE 20 MG/ML VIAL SLOW IVP PRN (15:40)
[2021-07-05] MEDS ORDERED: Potassium Chloride 20 MEQ TAB PO SCH (16:30)
[2021-07-05] MEDS ORDERED: Bisacodyl 10 MG SUPP PR PRN (17:32)
[2021-07-05] MEDS ORDERED: Polyethylene Glycol 3350 17 GM Packet PO SCH (17:45)
[2021-07-05] MEDS ORDERED: Docusate 100 MG CAP PO SCH (17:45)
[2021-07-05] MEDS: Atorvastatin Calcium 40 MG TAB PO SCH (21:37)
[2021-07-06] MEDS ORDERED: Sucralfate 1 GM TAB PO SCH (01:00)
[2021-07-06] MEDS: HumaLOG 300 UNITS/3 ML VIAL SC PRN ×3 (06:20→16:33)
[2021-07-06] MEDS: Levothyroxine Sodium 88 MCG TAB PO SCH (06:21)
[2021-07-06] MEDS ORDERED: NIFEdipine XL 60 MG TAB PO SCH (08:01)
[2021-07-06] MEDS ORDERED: Pantoprazole 40 MG VIAL IVP SCH (09:00)
[2021-07-06] MEDS: Famotidine/PF 20 mg/2ml Vial SLOW IVP SCH (09:48)
[2021-07-06] MEDS: Enoxaparin Sodium 40 MG/0.4 ML SYRINGE SC SCH (09:48)
[2021-07-06] MEDS: Ondansetron PF 4 MG/2 ML Vial IVP PRN ×2 (09:48→20:49)
[2021-07-06] MEDS: Polyethylene Glycol 3350 17 GM Packet PO SCH (09:57)
[2021-07-06] MEDS: Trospium 20 MG TAB PO SCH ×2 (10:35→20:16)
[2021-07-06] MEDS: Clopidogrel Bisulfate 75 MG TAB PO SCH (10:36)
[2021-07-06] MEDS: Losartan 25 MG TAB PO SCH (10:36)
[2021-07-06] MEDS: hydrALAZINE 25 MG TAB PO SCH ×3 (10:37→20:15)
[2021-07-06] MEDS: NIFEdipine XL 90 MG TAB PO SCH (10:37)
[2021-07-06] MEDS: Docusate 100 MG CAP PO SCH ×3 (10:38→23:41)
[2021-07-06] MEDS: Aspirin 81 mg Enteric Coated Tablet PO SCH (10:38)
[2021-07-06] MEDS: Acetaminophen 325 MG TAB PO PRN ×3 (10:38→20:16)
[2021-07-06] MEDS: Metoprolol Tartrate 50 MG TAB PO SCH ×3 (10:39→23:43)
[2021-07-06] MEDS ORDERED: Simethicone Chewable 80 MG TAB PO PRN (10:50)
[2021-07-06 11:55] LABS: #Eosinphils 0.1 thou/uL (0.0-0.7); #Lymphocytes 1.5 thou/uL (1.20-3.40); %Basophils 0.2 % (0.0-1.0); %Eosinophils 0.6 % (0.0-10.0); %Lymphocytes 12.7 % (21.0-51.0); %Monocytes 8.5 % (0.0-10.0); Hemoglobin 15.6 g/dL (14.0-18.0); Mean Corpuscular HGB CONC 34.3 g/dL (32.0-36.0); Mean Corpuscular Hemoglobin 31.7 pg (27.0-31.0); Mean Corpuscular Volume 92.3 fL (78.0-98.0); Mean Platelet Volume 7.2 fL (7.4-10.4); Platelet Count 318 thou/uL (130-400); RBC Distribution Width 12.3 % (11.5-14.5); Red Blood Cell (RBC) Count 4.91 mill/uL (4.70-6.10); White Blood Cell (WBC) Count 11.5 thou/uL (4.8-10.8)
[2021-07-06 12:10] LABS: Lactic Acid 0.8 mmol/L (0.5-2.2)
[2021-07-06 12:15] LABS: Anion Gap 12 mmol/L (10-20); BUN (Urea Nitrogen) 22 mg/dL (8.4-25.7); Calc. Creatinine Clearance 87 mL/min (70-130); Calcium 9.1 mg/dL (7.8-10.44); Carbon Dioxide 24 mmol/L (23-31); Chloride 94 mmol/L (98-107); Glucose 194 mg/dL (83-110); Potassium 3.8 mmol/L (3.5-5.1); Sodium 126 mmol/L (136-145)
[2021-07-06 12:16] LABS: ALT (SGPT) 11 U/L (8-55); AST (SGOT) 11 U/L (5-34); Albumin 3.6 g/dL (3.4-4.8); Alkaline Phosphatase 73 U/L (40-110); Anion Gap 10 mmol/L (10-20); BUN (Urea Nitrogen) 22 mg/dL (8.4-25.7); Calc. Creatinine Clearance 84 mL/min (70-130); Calcium 9.2 mg/dL (7.8-10.44); Carbon Dioxide 26 mmol/L (23-31); Chloride 94 mmol/L (98-107); Globulin 3.3 g/dL (2.4-3.5); Glucose 195 mg/dL (83-110); Lipase 45 U/L (8-78); Potassium 3.8 mmol/L (3.5-5.1); Protein, Total 6.9 g/dL (5.8-8.1); Sodium 126 mmol/L (136-145)
[2021-07-06] MEDS ORDERED: Sodium Chloride 0.9% 500 ML IV SCH (13:00)
[2021-07-06 15:09] LABS: Free T4 (Free Thyroxine) 1.12 ng/dL (0.70-1.48)
[2021-07-06] MEDS: Atorvastatin Calcium 40 MG TAB PO SCH ×2 (20:17→23:43)
[2021-07-06] MEDS: hydrALAZINE 20 MG/ML VIAL SLOW IVP PRN (20:49)
[2021-07-06] MEDS: Metoclopramide HCl 10 MG/2 ML VIAL IVP PRN (21:59)
[2021-07-07] MEDS: HumaLOG 300 UNITS/3 ML VIAL SC PRN ×2 (06:09→12:10)
[2021-07-07] MEDS: Levothyroxine Sodium 88 MCG TAB PO SCH (06:12)
[2021-07-07 06:50] LABS: Anion Gap 14 mmol/L (10-20); BUN (Urea Nitrogen) 29 mg/dL (8.4-25.7); Calc. Creatinine Clearance 61 mL/min (70-130); Calcium 9.2 mg/dL (7.8-10.44); Carbon Dioxide 24 mmol/L (23-31); Chloride 96 mmol/L (98-107); Glucose 154 mg/dL (83-110); Potassium 3.5 mmol/L (3.5-5.1); Sodium 130 mmol/L (136-145)
[2021-07-07] MEDS: Enoxaparin Sodium 40 MG/0.4 ML SYRINGE SC SCH (08:05)
[2021-07-07] MEDS: Metoclopramide HCl 10 MG/2 ML VIAL IVP PRN ×2 (08:06→19:56)
[2021-07-07] MEDS: Pantoprazole 40 MG VIAL IVP SCH (08:06)
[2021-07-07] MEDS: Polyethylene Glycol 3350 17 GM Packet PO SCH (09:44)
[2021-07-07] MEDS: NIFEdipine XL 90 MG TAB PO SCH (09:45)
[2021-07-07] MEDS: Trospium 20 MG TAB PO SCH ×2 (09:45→21:17)
[2021-07-07] MEDS: hydrALAZINE 25 MG TAB PO SCH ×3 (09:46→21:17)
[2021-07-07] MEDS: Losartan 25 MG TAB PO SCH (09:47)
[2021-07-07] MEDS: Metoprolol Tartrate 50 MG TAB PO SCH ×2 (09:48→21:17)
[2021-07-07] MEDS: Aspirin 81 mg Enteric Coated Tablet PO SCH (09:48)
[2021-07-07] MEDS: Docusate 100 MG CAP PO SCH ×2 (09:48→21:17)
[2021-07-07] MEDS: Clopidogrel Bisulfate 75 MG TAB PO SCH (09:48)
[2021-07-07] MEDS: Ondansetron PF 4 MG/2 ML Vial IVP PRN ×2 (09:51→17:40)
[2021-07-07] MEDS: Lidocaine 5% Patch TD SCH (12:10)
[2021-07-07] MEDS ORDERED: Sodium Chloride 0.9% 500 ML IV SCH (13:15)
[2021-07-07] MEDS: Atorvastatin Calcium 40 MG TAB PO SCH (21:17)
[2021-07-07] MEDS: Transdermal Patch Removal TOP SCH (21:18)
[2021-07-08 06:20] LABS: Anion Gap 12 mmol/L (10-20); BUN (Urea Nitrogen) 21 mg/dL (8.4-25.7); Calc. Creatinine Clearance 79 mL/min (70-130); Calcium 9.3 mg/dL (7.8-10.44); Carbon Dioxide 25 mmol/L (23-31); Chloride 100 mmol/L (98-107); Glucose 161 mg/dL (83-110); Potassium 4.3 mmol/L (3.5-5.1); Sodium 133 mmol/L (136-145)
[2021-07-08] MEDS: Levothyroxine Sodium 88 MCG TAB PO SCH (07:50)
[2021-07-08] MEDS: Enoxaparin Sodium 40 MG/0.4 ML SYRINGE SC SCH (07:51)
[2021-07-08] MEDS: Pantoprazole 40 MG VIAL IVP SCH (07:51)
[2021-07-08] MEDS: Metoclopramide HCl 10 MG/2 ML VIAL IVP PRN ×2 (07:51→19:31)
[2021-07-08] MEDS: Lidocaine 5% Patch TD SCH (07:52)
[2021-07-08] MEDS: Docusate 100 MG CAP PO SCH ×2 (09:01→20:41)
[2021-07-08] MEDS: Metoprolol Tartrate 50 MG TAB PO SCH ×2 (09:01→20:41)
[2021-07-08] MEDS: Trospium 20 MG TAB PO SCH ×2 (09:01→20:41)
[2021-07-08] MEDS: Losartan 25 MG TAB PO SCH (09:01)
[2021-07-08] MEDS: Polyethylene Glycol 3350 17 GM Packet PO SCH (09:01)
[2021-07-08] MEDS: NIFEdipine XL 90 MG TAB PO SCH (09:01)
[2021-07-08] MEDS: Clopidogrel Bisulfate 75 MG TAB PO SCH (09:01)
[2021-07-08] MEDS: Aspirin 81 mg Enteric Coated Tablet PO SCH (09:01)
[2021-07-08] MEDS: hydrALAZINE 25 MG TAB PO SCH ×3 (09:01→20:41)
[2021-07-08] MEDS: HumaLOG 300 UNITS/3 ML VIAL SC PRN (10:30)
[2021-07-08] MEDS: Ondansetron PF 4 MG/2 ML Vial IVP PRN (14:49)
[2021-07-08] MEDS: Atorvastatin Calcium 40 MG TAB PO SCH (20:41)
[2021-07-08] MEDS: Transdermal Patch Removal TOP SCH (21:59)
[2021-07-09 00:13] LABS: SARS-CoV-2 PCR by NAA Not Detected (NotDetected)
[2021-07-09 06:40] LABS: Anion Gap 13 mmol/L (10-20); BUN (Urea Nitrogen) 20 mg/dL (8.4-25.7); Calc. Creatinine Clearance 83 mL/min (70-130); Calcium 9.4 mg/dL (7.8-10.44); Carbon Dioxide 24 mmol/L (23-31); Chloride 99 mmol/L (98-107); Glucose 154 mg/dL (83-110); Potassium 3.3 mmol/L (3.5-5.1); Sodium 133 mmol/L (136-145)
[2021-07-09] MEDS: Levothyroxine Sodium 88 MCG TAB PO SCH (07:57)
[2021-07-09] MEDS: hydrALAZINE 25 MG TAB PO SCH ×3 (09:21→20:06)
[2021-07-09] MEDS: Losartan 25 MG TAB PO SCH (09:21)
[2021-07-09] MEDS: Trospium 20 MG TAB PO SCH ×2 (09:21→20:06)
[2021-07-09] MEDS: NIFEdipine XL 90 MG TAB PO SCH (09:21)
[2021-07-09] MEDS: Docusate 100 MG CAP PO SCH ×2 (09:21→20:06)
[2021-07-09] MEDS: Metoprolol Tartrate 50 MG TAB PO SCH ×2 (09:21→20:06)
[2021-07-09] MEDS: Lidocaine 5% Patch TD SCH ×2 (09:22→09:51)
[2021-07-09] MEDS: Polyethylene Glycol 3350 17 GM Packet PO SCH (09:22)
[2021-07-09] MEDS: Pantoprazole 40 MG VIAL IVP SCH (09:22)
[2021-07-09] MEDS: LIDOCAINE Patch Removal TOP SCH (09:51)
[2021-07-09] MEDS: HumaLOG 300 UNITS/3 ML VIAL SC PRN ×2 (11:45→17:30)
[2021-07-09 13:55] VITALS: BMI 26.5
[2021-07-09] MEDS: Ondansetron PF 4 MG/2 ML Vial IVP PRN (14:32)
[2021-07-09] MEDS: Clopidogrel Bisulfate 75 MG TAB PO SCH (14:33)
[2021-07-09] MEDS: Aspirin 81 mg Enteric Coated Tablet PO SCH (14:33)
[2021-07-09] MEDS: Enoxaparin Sodium 40 MG/0.4 ML SYRINGE SC SCH (14:34)
[2021-07-09] MEDS: metFORMIN 500 MG TAB PO SCH (16:42)
[2021-07-09] MEDS: Atorvastatin Calcium 40 MG TAB PO SCH (20:06)
[2021-07-09] MEDS ORDERED: Fleet Enema 133 ML BOT PR SCH (21:30)
[2021-07-09] MEDS: hydrALAZINE 20 MG/ML VIAL SLOW IVP PRN (23:59)
[2021-07-10] MEDS: Levothyroxine Sodium 88 MCG TAB PO SCH (05:27)
[2021-07-10] MEDS: HumaLOG 300 UNITS/3 ML VIAL SC PRN ×2 (05:49→12:14)
[2021-07-10 06:04] LABS: #Eosinphils 0.1 thou/uL (0.0-0.7); #Lymphocytes 1.6 thou/uL (1.20-3.40); #Monocytes 1.1 thou/uL (0.11-0.59); #Neutrophils 11.9 thou/uL (1.40-6.50); %Basophils 0.2 % (0.0-1.0); %Eosinophils 0.7 % (0.0-10.0); %Lymphocytes 11.2 % (21.0-51.0); %Monocytes 7.3 % (0.0-10.0); %Neutrophils 80.6 % (42.0-75.0); Mean Corpuscular HGB CONC 33.1 g/dL (32.0-36.0); Mean Corpuscular Hemoglobin 30.9 pg (27.0-31.0); Mean Corpuscular Volume 93.3 fL (78.0-98.0); Mean Platelet Volume 6.6 fL (7.4-10.4); Platelet Count 375 thou/uL (130-400); RBC Distribution Width 12.2 % (11.5-14.5); Red Blood Cell (RBC) Count 5.18 mill/uL (4.70-6.10); White Blood Cell (WBC) Count 14.7 thou/uL (4.8-10.8)
[2021-07-10 06:23] LABS: Anion Gap 16 mmol/L (10-20); BUN (Urea Nitrogen) 18 mg/dL (8.4-25.7); Calc. Creatinine Clearance 84 mL/min (70-130); Calcium 9.6 mg/dL (7.8-10.44); Carbon Dioxide 20 mmol/L (23-31); Chloride 99 mmol/L (98-107); Glucose 193 mg/dL (83-110); Sodium 131 mmol/L (136-145)
[2021-07-10 06:25] LABS: Potassium 3.7 mmol/L (3.5-5.1)
[2021-07-10] MEDS: Metoprolol Tartrate 50 MG TAB PO SCH ×2 (09:15→21:31)
[2021-07-10] MEDS: Losartan 25 MG TAB PO SCH (09:15)
[2021-07-10] MEDS: Enoxaparin Sodium 40 MG/0.4 ML SYRINGE SC SCH (09:15)
[2021-07-10] MEDS: NIFEdipine XL 90 MG TAB PO SCH (09:15)
[2021-07-10] MEDS: Trospium 20 MG TAB PO SCH ×2 (09:15→21:32)
[2021-07-10] MEDS: Docusate 100 MG CAP PO SCH ×2 (09:15→21:32)
[2021-07-10] MEDS: Polyethylene Glycol 3350 17 GM Packet PO SCH (09:15)
[2021-07-10] MEDS: Clopidogrel Bisulfate 75 MG TAB PO SCH (09:16)
[2021-07-10] MEDS: hydrALAZINE 25 MG TAB PO SCH ×3 (09:16→21:31)
[2021-07-10] MEDS: LIDOCAINE Patch Removal TOP SCH (09:16)
[2021-07-10] MEDS: metFORMIN 500 MG TAB PO SCH ×2 (09:16→16:17)
[2021-07-10] MEDS: Aspirin 81 mg Enteric Coated Tablet PO SCH (09:16)
[2021-07-10] MEDS: hydrALAZINE 20 MG/ML VIAL SLOW IVP PRN (10:49)
[2021-07-10] MEDS ORDERED: Iopamidol-370 76% 500 ML 1 ML ONE (11:06)
[2021-07-10] MEDS ORDERED: diphenhydrAMINE 50 MG/ML VIAL IVP SCH (18:45)
[2021-07-10] MEDS ORDERED: Famotidine/PF 20 mg/2ml Vial SLOW IVP SCH (18:45)
[2021-07-10] MEDS: methylPREDNISolone Sod Succ 40 MG VIAL IVP SCH (20:06)
[2021-07-10] MEDS: Atorvastatin Calcium 40 MG TAB PO SCH (21:32)
[2021-07-10] MEDS: Lidocaine 5% Patch TD SCH ×2 (21:33)
[2021-07-11] MEDS: methylPREDNISolone Sod Succ 40 MG VIAL IVP SCH ×6 (00:50→22:46)
[2021-07-11] MEDS: Levothyroxine Sodium 88 MCG TAB PO SCH (05:40)
[2021-07-11] MEDS: NIFEdipine XL 90 MG TAB PO SCH (09:42)
[2021-07-11] MEDS: Losartan 25 MG TAB PO SCH (09:42)
[2021-07-11] MEDS: metFORMIN 500 MG TAB PO SCH ×2 (09:42→16:27)
[2021-07-11] MEDS: Metoprolol Tartrate 50 MG TAB PO SCH ×2 (09:42→22:46)
[2021-07-11] MEDS: hydrALAZINE 25 MG TAB PO SCH (09:42)
[2021-07-11] MEDS: Docusate 100 MG CAP PO SCH ×2 (09:44→22:46)
[2021-07-11] MEDS: Polyethylene Glycol 3350 17 GM Packet PO SCH (09:44)
[2021-07-11] MEDS: Clopidogrel Bisulfate 75 MG TAB PO SCH (09:44)
[2021-07-11] MEDS: Trospium 20 MG TAB PO SCH ×2 (09:44→22:46)
[2021-07-11] MEDS: Aspirin 81 mg Enteric Coated Tablet PO SCH (09:44)
[2021-07-11] MEDS ORDERED: Fleet Enema 133 ML BOT PR SCH (09:45)
[2021-07-11] MEDS: Enoxaparin Sodium 40 MG/0.4 ML SYRINGE SC SCH (09:56)
[2021-07-11] MEDS: LIDOCAINE Patch Removal TOP SCH (10:00)
[2021-07-11] MEDS: HumaLOG 300 UNITS/3 ML VIAL SC PRN (11:15)
[2021-07-11] MEDS ORDERED: Fleet Enema 133 ML BOT FS SCH (21:00)
[2021-07-11] MEDS: Atorvastatin Calcium 40 MG TAB PO SCH (22:46)
[2021-07-11] MEDS: Lidocaine 5% Patch TD SCH (22:47)
[2021-07-12] MEDS: methylPREDNISolone Sod Succ 40 MG VIAL IVP SCH ×2 (01:00→06:40)
[2021-07-12] MEDS: Levothyroxine Sodium 88 MCG TAB PO SCH (06:32)
[2021-07-12] MEDS: HumaLOG 300 UNITS/3 ML VIAL SC PRN ×2 (06:33→17:52)
[2021-07-12] MEDS: hydrALAZINE 20 MG/ML VIAL SLOW IVP PRN (08:37)
[2021-07-12] MEDS ORDERED: Lidocaine 1% PF 5 ML VIAL ONE (12:13)
[2021-07-12] MEDS ORDERED: PROPOFOL 200 MG/20 ML VIAL ONE (12:13)
[2021-07-12] MEDS: Enoxaparin Sodium 40 MG/0.4 ML SYRINGE SC SCH (13:17)
[2021-07-12] MEDS: Polyethylene Glycol 3350 17 GM Packet PO SCH (13:17)
[2021-07-12] MEDS: Losartan 25 MG TAB PO SCH (13:18)
[2021-07-12] MEDS: metFORMIN 500 MG TAB PO SCH ×2 (13:18→17:52)
[2021-07-12] MEDS: Docusate 100 MG CAP PO SCH ×2 (13:18→20:15)
[2021-07-12] MEDS: NIFEdipine XL 90 MG TAB PO SCH (13:18)
[2021-07-12] MEDS: Trospium 20 MG TAB PO SCH ×2 (13:18→20:15)
[2021-07-12] MEDS: Clopidogrel Bisulfate 75 MG TAB PO SCH (13:19)
[2021-07-12] MEDS: Aspirin 81 mg Enteric Coated Tablet PO SCH (13:19)
[2021-07-12] MEDS: Metoprolol Tartrate 50 MG TAB PO SCH ×2 (13:19→20:15)
[2021-07-12] MEDS: LIDOCAINE Patch Removal TOP SCH (13:28)
[2021-07-12] MEDS: Atorvastatin Calcium 40 MG TAB PO SCH (20:15)
[2021-07-12] MEDS: Lidocaine 5% Patch TD SCH (22:35)
[2021-07-13] MEDS: Levothyroxine Sodium 88 MCG TAB PO SCH (06:35)
[2021-07-13] MEDS: HumaLOG 300 UNITS/3 ML VIAL SC PRN ×2 (06:38→11:48)
[2021-07-13] MEDS: NIFEdipine XL 90 MG TAB PO SCH (09:13)
[2021-07-13] MEDS: metFORMIN 500 MG TAB PO SCH (09:13)
[2021-07-13] MEDS: Enoxaparin Sodium 40 MG/0.4 ML SYRINGE SC SCH (09:13)
[2021-07-13] MEDS: Docusate 100 MG CAP PO SCH (09:13)
[2021-07-13] MEDS: Aspirin 81 mg Enteric Coated Tablet PO SCH (09:13)
[2021-07-13] MEDS: Trospium 20 MG TAB PO SCH (09:13)
[2021-07-13] MEDS: Clopidogrel Bisulfate 75 MG TAB PO SCH (09:14)
[2021-07-13] MEDS: Metoprolol Tartrate 50 MG TAB PO SCH (09:14)
[2021-07-13] MEDS: Losartan 25 MG TAB PO SCH (09:14)
[2021-07-13] MEDS: Polyethylene Glycol 3350 17 GM Packet PO SCH (11:21)
[2021-07-13] MEDS: LIDOCAINE Patch Removal TOP SCH (11:21)
[2021-07-13 12:05] VITALS: BP 180/81; TEMP 98.2
== END 2021-07-13 14:48 | DRG 64 ==
LOC: ERS 10:15 → NEURO 13:20 → OBSVTOIN 07-02 12:44 → CCU 07-04 17:13 → NEURO 07-05 21:24
PROVIDERS: ADMIT Internal Medicine; ATTEND Internal Medicine
PROC: B24BZZ4 Ultrasonography of Heart with Aorta, Transesophageal (ICD-10-PCS; principal; 2021-07-02)
DX: I63.531 Cerebral infarction due to unspecified occlusion or stenosis of right posterior cerebral artery (principal); G93.6 Cerebral edema; G81.04 Flaccid hemiplegia affecting left nondominant side; E87.1 Hypo-osmolality and hyponatremia; I16.1 Hypertensive emergency; K56.7 Ileus, unspecified; Z20.822 Contact with and (suspected) exposure to COVID-19; I25.10 Atherosclerotic heart disease of native coronary artery without angina pectoris; H53.8 Other visual disturbances; R29.700 NIHSS score 0; E78.00 Pure hypercholesterolemia, unspecified; R10.9 Unspecified abdominal pain; I10 Essential (primary) hypertension; E78.5 Hyperlipidemia, unspecified; E11.9 Type 2 diabetes mellitus without complications; E66.9 Obesity, unspecified; K59.00 Constipation, unspecified; M47.812 Spondylosis without myelopathy or radiculopathy, cervical region; Z85.46 Personal history of malignant neoplasm of prostate; Z92.3 Personal history of irradiation; Z95.5 Presence of coronary angioplasty implant and graft; Z88.8 Allergy status to other drugs, medicaments and biological substances; Z79.84 Long term (current) use of oral hypoglycemic drugs; Z79.82 Long term (current) use of aspirin; Z79.890 Hormone replacement therapy; Z79.899 Other long term (current) drug therapy; Z68.26 Body mass index [BMI] 26.0-26.9, adult
CPT/HCPCS: 36415; 36416; 70450; 70551; 71045; 72125; 74018; 74019; 74177; 80048; 80053; 80061; 82533; 83036; 83605; 83690; 83735; 83930; 83935; 84100; 84300; 84439; 84443; 84481; 84484; 85025; 85610; 85730; 90471; 90662; 93005; 93306; 93312; 93880; 94760; 95712; 95819; 95957; 96375; 96376; C9113; G0008; G0378; J0360; J1200; J1650; J1815; J2405; J2704; J2765; J2920; J7030; J7050; Q9967; S0028; U0002; U0003; U0005